=== PATIENT | male | born 1935 ===

== ENCOUNTER 2018-07-08 19:10 | Inpatient (IN) | payer MEDICARE, BC ==
[~2018-07-08] VITALS: Ht 177.8 cm; Wt 72.6 kg
--- NOTE | 2018-07-08 19:15 | NUR ---
Patient bib ambulance from [facility] for medical clearance. Patient is on 5150 for GD. Patient is noted to be AAO x 4 and speaking in complete sentences. Upon assessment, patient states that he is "physically healthy, but mentally needs help." Safety precautions implemented.
[2018-07-08] MEDS ORDERED: ZOLP5TAB8 PO (19:31)
[2018-07-08] MEDS ORDERED: CLON0.1T PO (19:31)
[2018-07-08] MEDS ORDERED: SITA50TA PO (19:31)
[2018-07-08] MEDS ORDERED: ASPI-605 PO (19:31)
[2018-07-08] MEDS ORDERED: ESCI10TA55 PO (19:31)
[2018-07-08] MEDS ORDERED: EPLE50TA9 PO (19:31)
[2018-07-08] MEDS ORDERED: MIRT15TA7 PO (19:31)
[2018-07-08] MEDS ORDERED: HYDR25TA4 PO (19:31)
[2018-07-08] MEDS ORDERED: ATOR80TA PO (19:31)
[2018-07-08] MEDS ORDERED: AMLO10TA7 PO (19:31)
[2018-07-08] MEDS ORDERED: LISI40TA4 PO (19:31)
[2018-07-08] MEDS ORDERED: CLOP75TA33 PO (19:31)
--- NOTE | 2018-07-08 20:00 | NUR ---
Patient medically cleared by ER .
--- NOTE | 2018-07-08 20:08 | NUR ---
Report given to MHU nurse
--- NOTE | 2018-07-08 20:30 | NUR ---
Pt. admitted to MHU , under care of Dr. Chun/Se ENGINEERING DESIGN SUPERVISOR Belongs List completed
--- NOTE | 2018-07-08 20:35 | NUR ---
Received pt in MHU via wheelchair, under the care of DR. ORLANDO. Pt on 5150 GRAVELY DISABLED due to feeling depressed and afraid to return home for fear of suicidal thoughts. Pt AxO x4, depressed and overwhelmed but denies wanting to harm self. Discussed and reviewed plan of care, pt cooperative. Pt ambulatory with slow steady gait. Belongings list done. Pertinent assessments and unit orientation completed. Pt shows no s/s of acute distress. Will continue to monitor.
[2018-07-08] MEDS ORDERED: ZOLPIDEM 5 MG TABLET PO PRN (22:00)
[2018-07-08] MEDS ORDERED: ACETAMINOPHEN 325 MG TABLET PO PRN (22:00)
[2018-07-08] MEDS ORDERED: MAG HYDROX/AL HYDROX/SIMETH 30 ML LIQUID UDC PO PRN (22:00)
[2018-07-08] MEDS ORDERED: MAGNESIUM HYDROXIDE 30 ML LIQUID UDC PO PRN (22:00)
[2018-07-08 23:00] VITALS: BP 172/79
[2018-07-09 07:47] VITALS: BP 171/78
[2018-07-09] MEDS ORDERED: Medication Not On Formulary EA (Sitagliptin Phosphate (Januvia) 50 MG) PO SCH (09:30)
[2018-07-09] MEDS ORDERED: EPLERENONE 50 MG PO SCH (09:30)
[2018-07-09] MEDS ORDERED: MIRTAZAPINE 15 MG TABLET PO SCH (09:30)
[2018-07-09] MEDS ORDERED: DEXTROSE 50% 50 ML DISP.SYRIN IV PRN (09:30)
[2018-07-09] MEDS ORDERED: Medication Not On Formulary EA (Lisinopril 40 MG) PO SCH (09:30)
[2018-07-09] MEDS: CLOPIDOGREL 75 MG TABLET PO SCH (09:50)
[2018-07-09] MEDS: AMLODIPINE 10 MG TABLET PO SCH (09:50)
[2018-07-09] MEDS: ASPIRIN EC 81 MG TABLET.DR PO SCH (09:51)
[2018-07-09] MEDS: CLONIDINE HCL 0.1 MG TABLET PO SCH ×3 (09:51→17:17)
[2018-07-09] MEDS: ESCITALOPRAM OXALATE 10 MG TABLET PO SCH (09:51)
[2018-07-09] MEDS: HYDROCHLOROTHIAZIDE 25 MG TABLET PO SCH (09:52)
[2018-07-09] MEDS: LISINOPRIL 20 MG TABLET PO SCH (10:21)
[2018-07-09] MEDS: SPIRONOLACTONE 50 MG TABLET PO SCH (10:23)
[2018-07-09] MEDS: LINAGLIPTIN 5 MG TABLET PO SCH (10:23)
[2018-07-09] MEDS: BLOOD SUGAR DIAGNOSTIC 1 EACH STRIP VI SCH ×3 (11:56→20:13)
[2018-07-09] MEDS: INSULIN REGULAR, HUMAN 300 UNIT/3 ML VIAL SQ PRN (14:04)
[2018-07-09 16:58] VITALS: BP 116/69
[2018-07-09 20:15] VITALS: BP 104/51
[2018-07-09] MEDS: ATORVASTATIN 40 MG TABLET PO SCH (20:22)
[2018-07-09] MEDS: INSULIN REGULAR, HUMAN 300 UNITS/3 ML VIAL SQ PRN (20:22)
[2018-07-09] MEDS: MIRTAZAPINE 15 MG TABLET PO SCH (20:27)
[2018-07-09] MEDS ORDERED: Medication Not On Formulary EA (Atorvastatin Calcium (Lipitor) 80 MG) PO SCH (21:00)
[2018-07-10] MEDS: BLOOD SUGAR DIAGNOSTIC 1 EACH STRIP VI SCH ×4 (06:35→21:19)
[2018-07-10 07:30] VITALS: BP 163/68
[2018-07-10 07:34] LABS: CARBON DIOXIDE 29 mmol/L (21-32); CHLORIDE 96 mmol/L (98-107); CREATININE 1.2 mg/dL (0.6-1.3); GLUCOSE 108 mg/dL (74-106); MAGNESIUM 1.6 mg/dL (1.8-2.4); PHOSPHOROUS 2.9 mg/dL (2.5-4.9); POTASSIUM 4.2 mmol/L (3.5-5.1); UREA NITROGEN, BLOOD 23 mg/dL (7-18)
[2018-07-10 07:49] LABS: BASOPHILS % (AUTO) 0.6 % (0.0-2.0); EOSINOPHILS # (AUTO) 0.8 K/uL (0.0-0.7); EOSINOPHILS % (AUTO) 10.7 % (0.0-7.0); HEMATOCRIT 33.3 % (36.7-47.1); HEMOGLOBIN 11.9 g/dL (12.5-16.3); LYMPHOCYTES # (AUTO) 1.8 K/uL (20.0-40.0); LYMPHOCYTES % (AUTO) 23.7 % (20.5-51.5); MEAN CORPUSCULAR HEMOGLOBIN 32.7 uug (23.8-33.4); MEAN CORPUSCULAR HGB CONC 36 g/dL (32.5-36.3); MEAN CORPUSCULAR VOLUME 91.4 fL (73.0-96.2); MONOCYTES # (AUTO) 0.7 K/uL (2.0-10.0); MONOCYTES % (AUTO) 8.8 % (0.0-11.0); NEUTROPHILS # (AUTO) 4.4 K/uL (1.8-8.9); NEUTROPHILS % (AUTO) 56.2 % (38.5-71.5); PLATELET COUNT (AUTO) 251 K/uL (152-348); RED BLOOD CELL COUNT(AUTO) 3.65 MIL/uL (4.06-5.63); WHITE BLOOD COUNT (AUTO) 7.8 K/uL (3.6-10.2)
[2018-07-10] MEDS: ASPIRIN EC 81 MG TABLET.DR PO SCH (08:20)
[2018-07-10] MEDS: CLONIDINE HCL 0.1 MG TABLET PO SCH ×3 (08:21→17:04)
[2018-07-10] MEDS: LISINOPRIL 20 MG TABLET PO SCH (08:21)
[2018-07-10] MEDS: CLOPIDOGREL 75 MG TABLET PO SCH (08:21)
[2018-07-10] MEDS: AMLODIPINE 10 MG TABLET PO SCH (08:21)
[2018-07-10] MEDS: ESCITALOPRAM OXALATE 10 MG TABLET PO SCH (08:21)
[2018-07-10] MEDS: HYDROCHLOROTHIAZIDE 25 MG TABLET PO SCH (08:22)
[2018-07-10] MEDS: SPIRONOLACTONE 50 MG TABLET PO SCH (08:24)
[2018-07-10] MEDS: LINAGLIPTIN 5 MG TABLET PO SCH (08:24)
[2018-07-10] MEDS ORDERED: MAGNESIUM OXIDE 400 MG TABLET PO ONE (09:15)
[2018-07-10] MEDS: INSULIN REGULAR, HUMAN 300 UNIT/3 ML VIAL SQ PRN (12:07)
[2018-07-10 16:00] VITALS: BP 140/62
[2018-07-10 20:09] VITALS: BP 132/52
[2018-07-10] MEDS: INSULIN REGULAR, HUMAN 300 UNITS/3 ML VIAL SQ PRN (21:19)
[2018-07-10] MEDS: MIRTAZAPINE 15 MG TABLET PO SCH (21:19)
[2018-07-10] MEDS: ATORVASTATIN 40 MG TABLET PO SCH (21:19)
[2018-07-11] MEDS: BLOOD SUGAR DIAGNOSTIC 1 EACH STRIP VI SCH ×4 (06:36→20:43)
[2018-07-11 07:30] VITALS: BP 158/73
[2018-07-11] MEDS: HYDROCHLOROTHIAZIDE 25 MG TABLET PO SCH (08:29)
[2018-07-11] MEDS: ESCITALOPRAM OXALATE 10 MG TABLET PO SCH (08:29)
[2018-07-11] MEDS: AMLODIPINE 10 MG TABLET PO SCH (08:30)
[2018-07-11] MEDS: LISINOPRIL 20 MG TABLET PO SCH (08:30)
[2018-07-11] MEDS: CLOPIDOGREL 75 MG TABLET PO SCH (08:31)
[2018-07-11] MEDS: CLONIDINE HCL 0.1 MG TABLET PO SCH ×3 (08:31→16:42)
[2018-07-11] MEDS: LINAGLIPTIN 5 MG TABLET PO SCH (08:35)
[2018-07-11] MEDS: ASPIRIN EC 81 MG TABLET.DR PO SCH (08:35)
[2018-07-11] MEDS: SPIRONOLACTONE 50 MG TABLET PO SCH (08:35)
--- NOTE | 2018-07-11 10:26 | NUR ---
Initial Discharge Instructions: The patient currently lives alone at home [address] [facility] [address] . Per patient, he would like to return home upon discharge. Spoke with pt's daughter, Martine ([phone]) who reports patient will return home upon discharge. The SW Railroad Car Cleaner and other SW will continue to collaborate with family and interdisciplinary team to ensure safe and proper discharge planning.
--- NOTE | 2018-07-11 12:03 | NUR ---
Activity group note: Patients were asked to answer the question of "What is one thing you would change about yourself and why? Subjective: "My name is Hang and I have been here for 1 1/2 days and I am looking forward to getting better." Objective: Patient seemed happy to participate in group and was attentive to each patient introducing self. Patient was called away at beginning of group to speak with psychotherapist so was unable to participate after that. Assessment: Patient seemed eager to participate and share during group prior to being taken out. Plan: Encourage group attendance as scheduled. needleworker will continue to ask patient to come to group and participate.
[2018-07-11 16:00] VITALS: BP 116/51
[2018-07-11] MEDS: INSULIN REGULAR, HUMAN 300 UNIT/3 ML VIAL SQ PRN (16:45)
[2018-07-11 19:59] VITALS: BP 102/53
[2018-07-11] MEDS: ATORVASTATIN 40 MG TABLET PO SCH (20:14)
[2018-07-11] MEDS: MIRTAZAPINE 15 MG TABLET PO SCH (20:14)
[2018-07-11] MEDS: INSULIN REGULAR, HUMAN 300 UNITS/3 ML VIAL SQ PRN (20:48)
[2018-07-12] MEDS: BLOOD SUGAR DIAGNOSTIC 1 EACH STRIP VI SCH ×4 (06:48→20:50)
[2018-07-12 07:30] VITALS: BP 141/75
[2018-07-12 07:40] LABS: CARBON DIOXIDE 31 mmol/L (21-32); CHLORIDE 97 mmol/L (98-107); CREATININE 1.2 mg/dL (0.6-1.3); GLUCOSE 108 mg/dL (74-106); MAGNESIUM 1.9 mg/dL (1.8-2.4); POTASSIUM 4.4 mmol/L (3.5-5.1); UREA NITROGEN, BLOOD 23 mg/dL (7-18)
[2018-07-12] MEDS: LINAGLIPTIN 5 MG TABLET PO SCH (08:38)
[2018-07-12] MEDS: CLOPIDOGREL 75 MG TABLET PO SCH (08:38)
[2018-07-12] MEDS: SPIRONOLACTONE 50 MG TABLET PO SCH (08:39)
[2018-07-12] MEDS: ASPIRIN EC 81 MG TABLET.DR PO SCH (08:39)
[2018-07-12] MEDS: LISINOPRIL 20 MG TABLET PO SCH (08:39)
[2018-07-12] MEDS: ESCITALOPRAM OXALATE 10 MG TABLET PO SCH (08:39)
[2018-07-12] MEDS: HYDROCHLOROTHIAZIDE 25 MG TABLET PO SCH (08:40)
[2018-07-12] MEDS: AMLODIPINE 10 MG TABLET PO SCH (08:41)
[2018-07-12] MEDS: CLONIDINE HCL 0.1 MG TABLET PO SCH ×3 (08:42→16:24)
[2018-07-12 12:01] VITALS: BP 123/62
--- NOTE | 2018-07-12 13:56 | NUR ---
Firearms report: PATRICIA completed and submitted [employer] firearms report for 5250 GD certification.
--- NOTE | 2018-07-12 15:05 | NUR ---
Gps/Lube Attendant- No s/s of hypo/hyperglycemia, showered by FAMILY RESOURCE SPECIALIST min. assist. Denies discomfort, had been cooperative, encouraged to attend his group therapy, denies S.I. ,monitored needs, safety reviewed and emphasized.
[2018-07-12 16:00] VITALS: BP 99/46
[2018-07-12 20:00] VITALS: BP 123/61
[2018-07-12] MEDS: ATORVASTATIN 40 MG TABLET PO SCH (20:49)
[2018-07-12] MEDS: MIRTAZAPINE 15 MG TABLET PO SCH (20:49)
[2018-07-12] MEDS: INSULIN REGULAR, HUMAN 300 UNITS/3 ML VIAL SQ PRN (20:51)
[2018-07-13] MEDS: BLOOD SUGAR DIAGNOSTIC 1 EACH STRIP VI SCH ×4 (07:03→20:52)
[2018-07-13 07:30] VITALS: BP 157/69
[2018-07-13] MEDS: LINAGLIPTIN 5 MG TABLET PO SCH (08:21)
[2018-07-13] MEDS: CLONIDINE HCL 0.1 MG TABLET PO SCH ×3 (08:21→16:38)
[2018-07-13] MEDS: CLOPIDOGREL 75 MG TABLET PO SCH (08:21)
[2018-07-13] MEDS: ESCITALOPRAM OXALATE 10 MG TABLET PO SCH (08:21)
[2018-07-13] MEDS: AMLODIPINE 10 MG TABLET PO SCH (08:21)
[2018-07-13] MEDS: SPIRONOLACTONE 50 MG TABLET PO SCH (08:22)
[2018-07-13] MEDS: LISINOPRIL 20 MG TABLET PO SCH (08:22)
[2018-07-13] MEDS: ASPIRIN EC 81 MG TABLET.DR PO SCH (08:22)
[2018-07-13] MEDS: HYDROCHLOROTHIAZIDE 25 MG TABLET PO SCH (08:23)
--- NOTE | 2018-07-13 13:41 | NUR ---
Discharge Planning: PATRICIA Rotary Drier Operator spoke with pt.s family on 07/09/17regarding supportive services that would benefit the needs of the patient. Per pt.s family, they would like assistance with transportation and meals for the patient because his vision is poor. In addition, they would like to get him to be involved in daily activities that can give him a sense of purpose, as well as have him see a therapist for his depression. PATRICIA Rotary Drier Operator gathered informational packets on 07/13/18 for supportive services which include [facility] application, [facility] informational packet, [facility] application, and [facility] to be provided upon discharge.
[2018-07-13 16:40] VITALS: BP 129/63
[2018-07-13 20:17] VITALS: BP 121/61
[2018-07-13] MEDS: ATORVASTATIN 40 MG TABLET PO SCH (20:35)
[2018-07-13] MEDS: MIRTAZAPINE 15 MG TABLET PO SCH (20:35)
[2018-07-13] MEDS: INSULIN REGULAR, HUMAN 300 UNITS/3 ML VIAL SQ PRN (21:10)
[2018-07-13] MEDS: LORAZEPAM 0.5 MG TABLET PO PRN ×2 (22:25→22:26)
--- NOTE | 2018-07-13 22:45 | NUR ---
RECEIVED PATIENT IN HIS ROOM.INTERACTS WHEN ENGAGED BUT MOOD APPEARS LOW AND AFFECT IS BLUNTED.HE HOWEVER DENIES SI/HI.ALSO DENIES PAIN OR DISCOMFORT.BS CHECKS DONE AND IT WAS 176.INSULIN COVERAGE BY SLIDING SCALE APPLIED.NO S/S OF HYPO/HYPERGLYCEMIA NOTED.WILL CONTINUE TO MONITOR.
[2018-07-14] MEDS: BLOOD SUGAR DIAGNOSTIC 1 EACH STRIP VI SCH ×4 (06:46→21:31)
--- NOTE | 2018-07-14 06:53 | NUR ---
SLEPT FOR APPROX.7HRS.BLOOD SUGAR CHECK IS 98.
[2018-07-14 07:18] LABS: CARBON DIOXIDE 30 mmol/L (21-32); CHLORIDE 94 mmol/L (98-107); CREATININE 1.2 mg/dL (0.6-1.3); GLUCOSE 104 mg/dL (74-106); POTASSIUM 4.4 mmol/L (3.5-5.1); UREA NITROGEN, BLOOD 26 mg/dL (7-18)
[2018-07-14 07:30] VITALS: BP 127/67
[2018-07-14] MEDS: ASPIRIN EC 81 MG TABLET.DR PO SCH (10:01)
[2018-07-14] MEDS: CLOPIDOGREL 75 MG TABLET PO SCH (10:01)
[2018-07-14] MEDS: ESCITALOPRAM OXALATE 10 MG TABLET PO SCH (10:02)
[2018-07-14] MEDS: HYDROCHLOROTHIAZIDE 25 MG TABLET PO SCH (10:03)
[2018-07-14] MEDS: AMLODIPINE 10 MG TABLET PO SCH (10:04)
[2018-07-14] MEDS: CLONIDINE HCL 0.1 MG TABLET PO SCH ×3 (10:04→17:56)
[2018-07-14] MEDS: LISINOPRIL 20 MG TABLET PO SCH (10:04)
[2018-07-14] MEDS: LINAGLIPTIN 5 MG TABLET PO SCH (10:06)
[2018-07-14] MEDS: SPIRONOLACTONE 50 MG TABLET PO SCH (10:06)
[2018-07-14] MEDS: INSULIN REGULAR, HUMAN 300 UNIT/3 ML VIAL SQ PRN ×2 (11:54→17:24)
[2018-07-14 16:00] VITALS: BP 144/65
[2018-07-14 20:00] VITALS: BP 110/60
[2018-07-14] MEDS: MIRTAZAPINE 15 MG TABLET PO SCH (21:31)
[2018-07-14] MEDS: ATORVASTATIN 40 MG TABLET PO SCH (21:31)
--- NOTE | 2018-07-15 06:35 | NUR ---
PATIENT SLEEPING INTERMITTENTLY EASILY AWAKING TO VERBAL RESPONSE . NO DISTRESS NOTED. NO S/S OF HYPO /HYPER GLYCEMIA NOTED. SLEPT FOR 8.30 HRS. BLOOD SUGAR IN AM WAS 109.
[2018-07-15] MEDS: BLOOD SUGAR DIAGNOSTIC 1 EACH STRIP VI SCH ×4 (06:41→20:46)
[2018-07-15 07:14] LABS: CARBON DIOXIDE 29 mmol/L (21-32); CHLORIDE 92 mmol/L (98-107); GLUCOSE 112 mg/dL (74-106); POTASSIUM 4.4 mmol/L (3.5-5.1); UREA NITROGEN, BLOOD 26 mg/dL (7-18)
[2018-07-15 07:30] VITALS: BP 125/69
[2018-07-15] MEDS: CLOPIDOGREL 75 MG TABLET PO SCH (08:17)
[2018-07-15] MEDS: LINAGLIPTIN 5 MG TABLET PO SCH (08:17)
[2018-07-15] MEDS: ESCITALOPRAM OXALATE 10 MG TABLET PO SCH (08:17)
[2018-07-15] MEDS: AMLODIPINE 10 MG TABLET PO SCH (08:17)
[2018-07-15] MEDS: LISINOPRIL 20 MG TABLET PO SCH (08:18)
[2018-07-15] MEDS: CLONIDINE HCL 0.1 MG TABLET PO SCH ×3 (08:19→17:00)
[2018-07-15] MEDS: ASPIRIN EC 81 MG TABLET.DR PO SCH (08:19)
[2018-07-15] MEDS: HYDROCHLOROTHIAZIDE 25 MG TABLET PO SCH (09:00)
[2018-07-15] MEDS: SPIRONOLACTONE 50 MG TABLET PO SCH (11:35)
--- NOTE | 2018-07-15 11:42 | NUR ---
Gps/Industrial Economist- Hermes Damico SHERIFFS DETECTIVE in to see patient, aware of low sodium 126, informed patient on aldactone and hctz., and ok to administer aldactone and hold on hctz today, patient was informed
[2018-07-15 15:15] VITALS: BP 93/44
--- NOTE | 2018-07-15 19:30 | NUR ---
RECEIVED PATIENT IN BED, ALERT ORIENTED, NO COMPLAIN OF PAIN, COOPERATIVE WITH CARE, NO BEHAVIORAL PROBLEM NOTED, WILL CONT TO MONITOR.
[2018-07-15 20:00] VITALS: BP 141/62
[2018-07-15] MEDS: MIRTAZAPINE 15 MG TABLET PO SCH (20:45)
[2018-07-15] MEDS: ATORVASTATIN 40 MG TABLET PO SCH (20:45)
[2018-07-15] MEDS: INSULIN REGULAR, HUMAN 300 UNITS/3 ML VIAL SQ PRN (20:52)
[2018-07-16] MEDS: BLOOD SUGAR DIAGNOSTIC 1 EACH STRIP VI SCH ×3 (05:50→16:54)
--- NOTE | 2018-07-16 06:15 | NUR ---
Patient awake, cooperative with care, slept 7.30 hrs, no complains of pain, no s/s of hypo/hyperglycemia noted. cont to monitor.
[2018-07-16 07:30] VITALS: BP 131/71
[2018-07-16 08:29] LABS: CARBON DIOXIDE 29 mmol/L (21-32); CHLORIDE 93 mmol/L (98-107); CREATININE 1.2 mg/dL (0.6-1.3); GLUCOSE 99 mg/dL (74-106); POTASSIUM 4.6 mmol/L (3.5-5.1); UREA NITROGEN, BLOOD 27 mg/dL (7-18)
[2018-07-16] MEDS: SPIRONOLACTONE 50 MG TABLET PO SCH (08:57)
[2018-07-16] MEDS: ASPIRIN EC 81 MG TABLET.DR PO SCH (08:58)
[2018-07-16] MEDS: HYDROCHLOROTHIAZIDE 25 MG TABLET PO SCH (08:58)
[2018-07-16] MEDS: LINAGLIPTIN 5 MG TABLET PO SCH (08:58)
[2018-07-16] MEDS: AMLODIPINE 10 MG TABLET PO SCH (08:59)
[2018-07-16] MEDS: LISINOPRIL 20 MG TABLET PO SCH (09:03)
[2018-07-16] MEDS: CLOPIDOGREL 75 MG TABLET PO SCH (09:05)
[2018-07-16] MEDS: ESCITALOPRAM OXALATE 10 MG TABLET PO SCH (09:05)
[2018-07-16] MEDS: CLONIDINE HCL 0.1 MG TABLET PO SCH ×3 (09:08→17:00)
[2018-07-16] MEDS: INSULIN REGULAR, HUMAN 300 UNIT/3 ML VIAL SQ PRN (12:33)
--- NOTE | 2018-07-16 14:19 | NUR ---
Discharge Planning: Social work international nurse called an left a voicemail with Paola Thompson [[phone] ext. [phone]], home-delivered meal coordinator, at [facility] regarding home-delivered meal program. Social work international nurse to follow-up if no call back is received.
[2018-07-16 15:14] VITALS: BP 98/48
--- NOTE | 2018-07-16 16:41 | NUR ---
Group Note: GOAL Patient will actively participate in the group discussion of the day or listen respectfully to other peers responses. INTERVENTION Social Work Informatics Nurse Specialist invited patient to participate in a group discussion held from 2:30-3:15 pm in the activities room. JANICE Weiner and Social Work Informatics Nurse Specialist Laura facilitated a group discussion regarding life experiences and valuable life lessons. RESPONSE Patient was cooperative and engaged throughout discussion. Patient shared some difficult times he has endured and significant changes he will have to adapt to. Patient demonstrated interest and compassion with his peers and their shared stories. Patient expressed gratitude for the group discussion, he stated that he feels better after talking about the troubles hes going through. PLAN Patient to attend the next group discussion.
[2018-07-16] MEDS ORDERED: INSULIN REGULAR, HUMAN 300 UNIT/3 ML VIAL SQ PRN (16:42)
[2018-07-16] MEDS ORDERED: DEXTROSE 50% 50 ML DISP.SYRIN IV PRN (16:43)
[2018-07-16 20:00] VITALS: BP 101/50
[2018-07-16] MEDS: MIRTAZAPINE 15 MG TABLET PO SCH (20:25)
[2018-07-16] MEDS: ATORVASTATIN 40 MG TABLET PO SCH (20:25)
[2018-07-16] MEDS: LORAZEPAM 0.5 MG TABLET PO PRN (23:27)
[2018-07-17] MEDS: BLOOD SUGAR DIAGNOSTIC 1 EACH STRIP VI SCH ×2 (06:23→17:51)
[2018-07-17 07:30] VITALS: BP 162/69
[2018-07-17 07:36] LABS: CARBON DIOXIDE 28 mmol/L (21-32); CHLORIDE 94 mmol/L (98-107); CREATININE 1.1 mg/dL (0.6-1.3); GLUCOSE 110 mg/dL (74-106); POTASSIUM 4.5 mmol/L (3.5-5.1); UREA NITROGEN, BLOOD 28 mg/dL (7-18)
[2018-07-17] MEDS: LINAGLIPTIN 5 MG TABLET PO SCH (09:07)
[2018-07-17] MEDS: SPIRONOLACTONE 50 MG TABLET PO SCH (09:07)
[2018-07-17] MEDS: ASPIRIN EC 81 MG TABLET.DR PO SCH (09:08)
[2018-07-17] MEDS: ESCITALOPRAM OXALATE 10 MG TABLET PO SCH (09:08)
[2018-07-17] MEDS: LISINOPRIL 20 MG TABLET PO SCH (09:12)
[2018-07-17] MEDS: CLOPIDOGREL 75 MG TABLET PO SCH (09:14)
[2018-07-17] MEDS: AMLODIPINE 10 MG TABLET PO SCH (09:14)
[2018-07-17] MEDS: CLONIDINE HCL 0.1 MG TABLET PO SCH ×3 (09:15→18:00)
[2018-07-17] MEDS: SODIUM CHLORIDE 1,000 MG TABLET PO SCH ×3 (09:17→18:01)
[2018-07-17 15:35] VITALS: BP 124/61
[2018-07-17 20:14] VITALS: BP 106/55
[2018-07-17] MEDS: ATORVASTATIN 40 MG TABLET PO SCH (20:22)
[2018-07-17] MEDS: MIRTAZAPINE 15 MG TABLET PO SCH (20:22)
[2018-07-18] MEDS: BLOOD SUGAR DIAGNOSTIC 1 EACH STRIP VI SCH ×2 (06:31→16:27)
[2018-07-18 07:38] LABS: BASOPHILS # (AUTO) 0.1 K/uL (0.0-8.0); BASOPHILS % (AUTO) 1.1 % (0.0-2.0); EOSINOPHILS # (AUTO) 0.9 K/uL (0.0-0.7); EOSINOPHILS % (AUTO) 12.1 % (0.0-7.0); HEMATOCRIT 32.4 % (36.7-47.1); HEMOGLOBIN 11.6 g/dL (12.5-16.3); LYMPHOCYTES # (AUTO) 1.8 K/uL (20.0-40.0); LYMPHOCYTES % (AUTO) 25.5 % (20.5-51.5); MEAN CORPUSCULAR HEMOGLOBIN 32.4 uug (23.8-33.4); MEAN CORPUSCULAR HGB CONC 36 g/dL (32.5-36.3); MEAN CORPUSCULAR VOLUME 90.8 fL (73.0-96.2); MONOCYTES # (AUTO) 0.7 K/uL (2.0-10.0); MONOCYTES % (AUTO) 9.2 % (0.0-11.0); NEUTROPHILS # (AUTO) 3.7 K/uL (1.8-8.9); NEUTROPHILS % (AUTO) 52.1 % (38.5-71.5); PLATELET COUNT (AUTO) 297 K/uL (152-348); RED BLOOD CELL COUNT(AUTO) 3.57 MIL/uL (4.06-5.63); WHITE BLOOD COUNT (AUTO) 7.2 K/uL (3.6-10.2)
[2018-07-18 07:45] LABS: ALANINE AMINOTRANSFERASE 29 U/L (16-63); ALKALINE PHOSPHATASE 69 U/L (50-136); ASPARTATE AMINOTRANSFERASE 17 U/L (15-37); BILIRUBIN,TOTAL 0.4 mg/dL (0.2-1.0); CARBON DIOXIDE 27 mmol/L (21-32); CHLORIDE 96 mmol/L (98-107); CREATININE 1.1 mg/dL (0.6-1.3); GLUCOSE 107 mg/dL (74-106); MAGNESIUM 1.8 mg/dL (1.8-2.4); PHOSPHOROUS 2.8 mg/dL (2.5-4.9); POTASSIUM 4.6 mmol/L (3.5-5.1); TOTAL PROTEIN, SERUM 6.6 g/dL (6.4-8.2); UREA NITROGEN, BLOOD 25 mg/dL (7-18)
[2018-07-18] MEDS: ESCITALOPRAM OXALATE 10 MG TABLET PO SCH (08:30)
[2018-07-18] MEDS: CLOPIDOGREL 75 MG TABLET PO SCH (08:31)
[2018-07-18] MEDS: CLONIDINE HCL 0.1 MG TABLET PO SCH ×3 (08:32→16:48)
[2018-07-18] MEDS: AMLODIPINE 10 MG TABLET PO SCH (08:33)
[2018-07-18] MEDS: ASPIRIN EC 81 MG TABLET.DR PO SCH (08:35)
[2018-07-18] MEDS: SPIRONOLACTONE 50 MG TABLET PO SCH (08:37)
[2018-07-18] MEDS: SODIUM CHLORIDE 1,000 MG TABLET PO SCH ×3 (08:37→16:49)
[2018-07-18] MEDS: LINAGLIPTIN 5 MG TABLET PO SCH (08:44)
[2018-07-18] MEDS: LISINOPRIL 20 MG TABLET PO SCH (08:44)
[2018-07-18 10:00] VITALS: BP 113/56
--- NOTE | 2018-07-18 15:30 | NUR ---
GROUP NOTE: Patient's were asked to attend group to draw pictures of their favorite animals and describe how that animal may represent who they are. S: "I think a tiger is synonymous with who I am as a person because I am true to my family." O: Patient was present for the group through the duration. Patient expressed interest in the topic. Patient made eye contact and asked questions of other members of the group. A: Patient seemed interested in the activity. Patient was able to complete the activity in full. Patient's mood seemed bright and he engaged with other members of the group. P: SW will continue to encourage pt to attend group as scheduled.
[2018-07-18 16:00] VITALS: BP 158/61
[2018-07-18] MEDS: ATORVASTATIN 40 MG TABLET PO SCH (21:15)
[2018-07-18] MEDS: MIRTAZAPINE 15 MG TABLET PO SCH (21:15)
[2018-07-18 22:00] VITALS: BP 122/69
[2018-07-18] MEDS: LORAZEPAM 0.5 MG TABLET PO PRN (22:17)
[2018-07-19] MEDS: BLOOD SUGAR DIAGNOSTIC 1 EACH STRIP VI SCH (06:44)
[2018-07-19] MEDS: ASPIRIN EC 81 MG TABLET.DR PO SCH (08:24)
[2018-07-19] MEDS: ESCITALOPRAM OXALATE 10 MG TABLET PO SCH (08:24)
[2018-07-19] MEDS: SPIRONOLACTONE 50 MG TABLET PO SCH (08:24)
[2018-07-19] MEDS: CLONIDINE HCL 0.1 MG TABLET PO SCH ×2 (08:24→12:20)
[2018-07-19] MEDS: CLOPIDOGREL 75 MG TABLET PO SCH (08:25)
[2018-07-19] MEDS: AMLODIPINE 10 MG TABLET PO SCH (08:25)
[2018-07-19] MEDS: LISINOPRIL 20 MG TABLET PO SCH (08:26)
[2018-07-19] MEDS: LINAGLIPTIN 5 MG TABLET PO SCH (08:26)
[2018-07-19] MEDS: SODIUM CHLORIDE 1,000 MG TABLET PO SCH ×2 (08:34→12:21)
--- NOTE | 2018-07-19 09:43 | NUR ---
Discharge Note: Patient will be discharged home [[address] [place] [address]; [phone]] via private transportation at noon. Patient will be picked up by his daughter, La ([phone]). Spoke with patients daughter, Jillian ([phone]) who is also aware and agreeable with discharge plans. Patient is aware and agreeable with discharge plans and denies any SI/HI. Patient will continue to follow up with his Primary Care Physician, Dr. Bandar Pittman [[address], [address] [place] [address]; ]. Patient was provided with a list of Medicare-accepting Psychiatrists in his area as well. Patient was provided with referral to [facility]'s In-home therapy services [[phone]]; [facility] Application [[address] [address] ]; [facility] application [ ]; [facility] ext.[phone] [facility]. Patient was also provided with [facility] contact information ([phone]). Patient was provided with outpatient mental health services to [facility] Crisis Line , Mayte Schulte , and the National Suicide Prevention Lifeline .
[2018-07-19 10:00] VITALS: BP 147/74
[2018-07-19 12:20] VITALS: BP 147/74
--- NOTE | 2018-07-19 13:58 | NUR ---
GPS DISCHARGE NOTES, PATIENT DISCHARGED TO HOME [[address] [place] [address]; [phone]]PICKED UP BY DAUGHTER ALBERT.HOME MEDICATION INSTRUCTION WERE GIVEN, AND FOLLOW UP WITH Dr. Bandar Pittman [[address], [address] [place] [address]; ]. PATIENT DENIES SUICIDAL IDEATION AND HOMICIDAL IDEATION, 14 DAY HOLD WAS DISCONTINUE . CURRENT VITAL SIGN WNL, ALL BELONGINGS AND VALUABLES RETURNED UPON EXITING THE UNIT,
--- NOTE | 2018-07-20 16:10 | NUR ---
When PATRICIA Thrasher Feeder spoke with pt. on 07/18/2018, he expressed that he needs assistance with meals and a day program as well as transportation. PATRICIA had provided patient with information on the [facility] program and the services it provides. PATRICIA had also attempted to contact the rehabilitation caseworker, but was unable to connect with her. PATRICIA Thrasher Feeder tried to once again contact Devonte [[phone] ext. [phone]], on 07/20/18 from [facility] [[facility], [address] [place] [address]] in order to initiate homebound meals program services for the pt., but was once again unable to connect with Devonte; PATRICIA left a voicemail. In addition, PATRICIA Crouch left a message for [facility] [employer] in an effort to arrange transportation for pt. to attend the day program. PATRICIA Crouch is waiting for them to reach back.
--- NOTE | 2018-07-23 15:35 | NUR ---
Tax Examining Technician Note: 9:00am: PATRICIA Crouch attempted to speak with community case manager [facility] ([id number] [place] [address]) in order to connect pt. with services. Little was currently out of the office. However, PATRICIA Crouch left a message for Little with Sharon, a volunteer at the front attendant. 11:00am: PATRICIA Crouch spoke with pt.s daughter, Jillian to inform her that community case manager, [facility] will be connecting pt. with Homebound meals program, a senior day center, and transportation services ([facility]) as soon as possible. Jillian stated that she has already been in contact with Little and will transport pt. to the senior center today to get him connected to those services. No further social work needs at this time. PATRICIA Crouch will be available if needed.
== END 2018-07-19 13:30 | disposition home or self-care (01) | DRG 885 ==
LOC: ER 19:12 → GPS 20:17
PROVIDERS: ADMIT Psychiatry & Neurology Psychiatry; ATTEND Internal Medicine
DX: F32.2 Major depressive disorder, single episode, severe without psychotic features (principal); N18.3 Chronic kidney disease, stage 3 (moderate); E87.1 Hypo-osmolality and hyponatremia; E22.2 Syndrome of inappropriate secretion of antidiuretic hormone; E11.22 Type 2 diabetes mellitus with diabetic chronic kidney disease; I12.9 Hypertensive chronic kidney disease with stage 1 through stage 4 chronic kidney disease, or unspecified chronic kidney disease; Z79.84 Long term (current) use of oral hypoglycemic drugs; Z79.82 Long term (current) use of aspirin; Z79.899 Other long term (current) drug therapy; Z85.46 Personal history of malignant neoplasm of prostate; E83.42 Hypomagnesemia; T43.225A Adverse effect of selective serotonin reuptake inhibitors, initial encounter; Y92.019 Unspecified place in single-family (private) house as the place of occurrence of the external cause; R63.1 Polydipsia; I65.29 Occlusion and stenosis of unspecified carotid artery; N40.0 Benign prostatic hyperplasia without lower urinary tract symptoms; E78.5 Hyperlipidemia, unspecified; Z86.73 Personal history of transient ischemic attack (TIA), and cerebral infarction without residual deficits
CPT/HCPCS: 36415; 83735; 84100; 85025; A4663; J1815